=== PATIENT | male | born 1955 | race Caucasian/White ===

== ENCOUNTER 2020-01-21 09:38 | Outpatient (REF) | payer OTHER, SELFPAY ==
--- NOTE | 2020-01-21 11:24 | MHC.AU.P13 ---
Adult Audiological Evaluation Date of Visit: 01/21/20 Reason for Appointment: Audiological evaluation due to perceived decrease in hearing sensitivity. Patient notes that he doesn't hear well in group settings and turns the TV up. Also notes difficulty if someone is not talking directly to him or if there's background noise. 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 Hearing protective devices not worn Medical History: Medical History: High Blood Pressure Allergies: Environmental and animal allergies Medication List: Hydrochlorothiazide for blood pressure Otoscopy: Right Ear: Unremarkable Left Ear: Unremarkable Tympanometry: Right Ear: Normal Middle Ear System (Type A) Left Ear: Normal Middle Ear System (Type A) Hearing Evaluation: Transducer(s) Used: Insert Earphones, Bone Conduction Method: Conventional Audiometry Stimuli Used: Pure Tones Right Ear: Description of Hearing: Normal hearing from 250-2000 Hz, sloping to a moderate sensorineural hearing loss from 2388-1260 Hz. Left Ear: Description of Hearing: Normal hearing from 250-2000 Hz, sloping to a moderately severe sensorineural hearing loss at 3000 Hz, and rising to a moderate sensorineural hearing loss from 3909-1802 Hz. Speech Recognition Threshold (SRT): Method Used: Monitored Live Voice Stimuli Used: Spondee Words Right Ear: 10 dBHL Left Ear: 10 dBHL Word Discrimination: Method: Recorded Lists Word Lists Used: NU-6 Right Ear: 96% at 60 dBHL Left Ear: 96% at 60 dBHL QuickSIN: 3 dB SNR loss, Normal/near normal, may hear better than normals in noise Recommendations: Recommendations: Audiological re-evaluation in one year. Recommendations (Other): Mr. Contreras is considered a borderline candidate for amplification. Given that he feels he can hear well at work and when there is no background noise, hearing aids may not provide a significant amount of perceived benefit at this time. It is recommended that we monitor Mr. Contreras's hearing loss annually and hearing aids can be pursued if hearing difficulties increase. Diagnosis: Primary Diagnosis: H90.3 Bilateral Sensorineural Hearing Loss Services Performed: Services Performed: Comprehensive Audiological Evaluation (CPT 49280) Tympanometry (CPT 17907) Signature: Provider: Yang Villaseñor, CCC-A
== END 2020-01-21 09:39 | disposition home or self-care (01) ==
LOC: HO.SH 09:38
PROVIDERS: PCP Family Medicine; Referring Provider Family Medicine; Visit Provider Family Medicine
DX: H90.3 Sensorineural hearing loss, bilateral (principal)
CPT/HCPCS: 92557; 92567; 92700